=== PATIENT | female | born 1965 | race Caucasian/White ===

== ENCOUNTER 2019-05-28 22:52 | Inpatient (IN) ==
[2019-05-28] MEDS ORDERED: MAXIPIME 2 GM in NS 100 ML IV ONE (23:27)
[2019-05-28] MEDS ORDERED: NS 500 ML IV ONE (23:27)
[2019-05-28] MEDS: NS 1,000 ML IV ONE (23:27)
[2019-05-28] MEDS ORDERED: VANCOMYCIN 1 GM/NS 1 GM/250 ML IVPB IV ONE (23:27)
[2019-05-29 00:07] LABS: INR 1.03; PROTIME 13.6 Seconds (11.0-16.0); PTT 24.7 Seconds (22.3-41.8)
[2019-05-29 00:37] LABS: MAGNESIUM 1.7 mg/dL (1.5-2.7)
[2019-05-29 00:52] LABS: URINE SOURCE CATH
[2019-05-29 01:32] LABS: BILIRUBIN URINE NEGATIVE (NEGATIVE); BLOOD URINE SMALL (NEGATIVE); COLOR YELLOW; GLUCOSE URINE >1000 mg/dL (NEGATIVE); KETONE URINE 10 mg/dL (NEGATIVE); LEUKOCYTES URINE NEGATIVE (NEGATIVE); NITRITE URINE NEGATIVE (NEGATIVE); PROTEIN URINE 300 mg/dL (NEGATIVE); TURBIDITY URINE CLEAR (CLEAR); UROBILINOGEN URINE NORMAL (NORMAL)
[2019-05-29 01:34] LABS: UR EPITHELIAL CELLS <10 /HPF (<10); URINE BACTERIA NEGATIVE /HPF; URINE RBC <10 /HPF (<10); URINE WBC <10 /HPF (<10)
[2019-05-29 01:58] LABS: AGAP 18; ALB/GLOB RATIO 1.1; ALBUMIN 4.4 g/dL (3.5-5.0); ALKALINE PHOSPHATASE 61 U/L (32-104); BUN 24 mg/dL (8-22); CALCIUM 10.6 mg/dL (8.8-10.2); CHLORIDE 94 mmol/L (98-107); COSMO 307; CREATININE 0.8 mg/dL (0.5-0.9); ESTIMATED GFR > 60; GOT 23 U/L (10-30); GPT 28 U/L (10-36); POTASSIUM 4.3 mmol/L (3.5-5.1); SODIUM 141 mmol/L (136-145); TCO2 29 mmol/L (25-35); TOTAL BILIRUBIN 0.29 mg/dL (0.20-1.00); TOTAL PROTEIN 8.3 g/dL (6.3-8.3)
[2019-05-29 02:00] LABS: GLUCOSE 484 mg/dL (70-104)
[2019-05-29] MEDS ORDERED: HUMULIN R IV ONE (02:03)
--- NOTE | 2019-05-29 02:28 | PROVIDER DOCUMENTATION ---
This chart was entered by Angela Werner Scribe, acting as scribe for Sean Basurto MD. HPI-General Adult - General Stated Complaint: fever/cough Time Seen by Provider: 05/28/19 22:56 Source: family, RN/MD Allergies/Adverse Reactions: Patient Allergies Allergy/AdvReac Type Severity Reaction Status Date / Time No Known Allergies Allergy Verified 01/09/14 16:00 Home Medications: Home Medication List Medication Instructions Recorded Confirmed Last Taken Type Triamterene/Hydrochlorothiazid 1 each PO DAILY 07/02/13 01/09/14 01/09/14 08:00 History [Triamterene-Hctz 37.5-25 mg Cp] Fluoxetine [Prozac] 20 mg PO DAILY 01/09/14 01/09/14 01/09/14 08:00 History Levetiracetam [Keppra] 1,000 mg PO DAILY 01/09/14 01/09/14 01/09/14 09:00 History Levetiracetam [Keppra] 1,250 mg PO HS 01/09/14 01/09/14 01/08/14 History Ibuprofen [Motrin] 400 mg PO TID PRN #0 tablet 01/15/14 Unknown Rx - History of Present Illness -Gen Adult Nature of Presenting Problems: pt is a 53 yowf presenting w/family to er w/cc pt arrived via [facility] from [facility] due to fever of 102, high fsbs above 600, htn and cough. pt vomited enroute w/ems. pt has hx of brain cancer, dm and htn. has received radiation recently. pt is nonverbal autistic per rn. no known allergies. pt is obese. Location of Pain/Injury: reports: none Pain Radiation: reports: no radiation Quality of Pain: reports: none Severity: reports: mild Onset/Duration: reports: this afternoon Timing: reports: still present Context/Activities at Onset: reports: none Modifying Factors: improves with: nothing Associated Symptoms: reports: cough, fever/chills, other (high fsbs, htn) Review of Systems - Adult - REVIEW OF SYSTEMS - ADULT Constitutional: reports: see HPI, fever. denies: chills, fatique, night sweats Eyes: reports: no symptoms reported Ears, Nose, Mouth & Throat: reports: no symptoms reported Cardiovascular: reports: see HPI, other (HTN). denies: chest pain, edema, palpitations Respiratory: reports: see HPI, cough. denies: dyspnea on exertion, shortness of breath, wheezing Gastrointestinal: reports: see HPI, vomiting. denies: abdominal pain, diarrhea, nausea Genitourinary: reports: no symptoms reported Musculoskeletal: reports: no symptoms reported Integumentary: reports: no symptoms reported Neurological: reports: no symptoms reported Psychiatric: reports: no symptoms reported Endocrine: reports: see HPI, other (high fsbs). denies: change in skin pigment, excessive sweating, goiter Hematologic/Lymphatic: reports: no symptoms reported Allergic/Immunologic: reports: no symptoms reported All Other Systems: Reviewed and Negative Past History - Adult - PAST MEDICAL HISTORY-ADULT Review of Records: reports: Nursing Assessment Review, Medications Reviewed, Social history reviewed & non-contributory. Major Childhood Illnesses: reports: other (cva) Cardiovascular: reports: HTN Respiratory: reports: denies history Gastrointestinal: reports: denies history Obstetrical/Gynecological: reports: denies history Genitourinary: reports: incontinence Musculoskeletal: reports: other (left knee is weak / has had this for months) Neurological: reports: cancer/tumor, CVA Psychiatric: reports: anxiety, other (nonverbal autistic) Endocrine/Immune: reports: Diabetes Other Conditions: reports: denies history - PRIOR SURGERIES/PROCEDURES Surgical/Procedure History: reports: other (crainiotomy) - IMMUNIZATION STATUS Childhood Immunizations: See Nurse Assessment Flu Vaccine: See Nurse Assessment - FAMILY HISTORY Family History: reviewed, not pertinent - SOCIAL HISTORY Smoking: non-smoker Substance Use: none/never Living Situation: care facility Physical Exam-General - PHYSICAL EXAM-ADULT Initial Vital Signs Reviewed: Yes - CONSTITUTIONAL General Appearance: alert, no apparent distress, obese. negative: anxious, lethargic, combative - EYES Eyes: PERRL/EOMI, pink conjunctivae - HEAD, EARS, NOSE, MOUTH & THROAT HENMT: normocephalic/atraumatic, moist mucous membranes - NECK Neck: non-tender, full range of motion, supple, normal inspection - RESPIRATORY Respiratory: chest non-tender, lungs clear, normal breath sounds, no pleuratic chest pain, no respiratory distress, no accessory muscle use. negative: wheezing, decreased rate, increased rate - CARDIOVASCULAR Cardiovascular: normal peripheral pulses, regular rate, rhythm - GASTROINTESTINAL (ABDOMEN) Abdominal Exam: normal bowel sounds, non tender, soft, no organomegaly, no pulsatile mass. negative: rigid, rebound, tenderness - MUSCULOSKELETAL Back Exam: normal inspection Extremity: normal range of motion, non-tender, normal inspection Peripheral Pulses: radial (R): 2+, radial (L): 2+ - SKIN Integumentary: normal color, normal turgor, warm/dry - NEUROLOGIC Neurologic: other (unable to test due to pt condition) - PSYCHIATRIC Psych/Mental Status: normal mood/affect, normal thought content, normal thought process, oriented x 3, other (pt at baseline) Progress - PLAN OF CARE/RESULTS Progress/Plan/Lab Results: Laboratory Results - last 24 hr 05/28/19 23:11 POC Glucose 460 H Result Diagrams: 05/28/19 23:43 05/28/19 23:43 - EKG 1 Time of EKG reading by physician:: 00:05 EKG Read and Signed by:: Sean Basurto EKG Interpretation (*Must complete 3 of following elements*): Abnormal Rate: 149 Rhythm: ST [place]: left QRS: normal IA Interval: normal ST Wave: non-specific ST changes (nonspecific st abnormality) - CONSULTS/PCP/HOSPITALIST Notification #1 *Consult/PCP/Hospitalist*: Rolando Time Discussed: 02:27 Consult Disposition: Will see in ED, Admit Departure - Departure Date of Disposition Decision: 05/28/19 Time of Disposition Decision: 23:45 DIAGNOSIS: Sepsis Qualifiers: Sepsis type: sepsis due to unspecified organism Severe sepsis acute organ dysfunction type: unspecified Severe sepsis shock status: without septic shock Hyperglycemia due to type 2 diabetes mellitus Qualifiers: Diabetes mellitus snf insulin use: with manager long term care use Qualified Code(s): E11.65 - Type 2 diabetes mellitus with hyperglycemia; Z79.4 - meterman (current) use of insulin Disposition: ADMITTED INPATIENT 09 Certified Medical Emergency: Emergent Condition: Stable Referrals and Follow-Ups: Miko Chery MD [Primary Care Provider] - - Critical Care Note This patient required my direct & personal management of CC.: Yes Total Time (mins): 40 Critical Care Statement: This patient required my direct personal management to treat or rule out processes, the absence of which, could potentiallly result in sudden, clinically significant life or limb threatening deterioration. Attestation - Physician/ SOBEIDA Attestation Patient care was provided by Advanced Practice Provider:: No The physician spent face to face time with patient:: Yes Advanced Practice Provider documentation review:: Supervising physician onsite and consulted in the evaluation and care of this patient. The physician did have a face to face encounter with the patient. Sepsis: Tissue Perfusion Assmt - Physical Exam Assessment Date: 05/29/19 Time Assessment Initialized: 02:10 Vital Signs: Last Vital Signs Temp 101.9 F H 05/28/19 23:15 Pulse 136 H 05/29/19 02:02 Resp 24 05/29/19 02:02 BP 157/104 05/29/19 02:02 Pulse Ox 95 05/29/19 02:02 Height 5 ft 9 in Weight 145.15 kg Lung Sounds:: lungs clear Heart Sounds:: Regular Capillary Refill Time: Less Than 2 Seconds Peripheral Pulse Evaluation:: radial (R): 2+ Skin Exam:: pink - Impression Impression:: Tissue Perfusion Adequate - Plan Plan:: No Change This chart was documented by the indicated scribe, (Angela Werner Scribeyad) and accurately reflects the services I performed and decisions made by me, Sean Basurto MD, as attested by the provider's signature.
[2019-05-29] MEDS ORDERED: TYLENOL PO ONE (02:29)
[2019-05-29] MEDS ORDERED: LANTUS INSULIN SUBQ ONE (02:48)
[2019-05-29 02:51] LABS: UR AMPHETAMINES QUAL NONE DETECTED (NONE DETECT); UR BARBITUATES QUAL NONE DETECTED (NONE DETECT); UR BENZODIAZEPIN QUAL NONE DETECTED (NONE DETECT); UR CANNABINOIDS QUAL NONE DETECTED (NONE DETECT); UR COCAINE QUAL NONE DETECTED (NONE DETECT); UR METHADONE QUAL NONE DETECTED (NONE DETECT); UR OPIATES QUAL NONE DETECTED (NONE DETECT); UR OXYCODONE QUAL NONE DETECTED (NONE DETECT); UR PCP QUAL NONE DETECTED (NONE DETECT)
[2019-05-29 03:02] LABS: BASO# 0.05 X1000 (0.0-0.2); BASO% 0.4 % (0.0-0.8); HEMOGLOBIN 16.3 g/dL (12.0-16.0); IMM GRAN# 0.13 X1000 (0.0-0.04); IMM GRAN% 0.9 % (0.0-0.5); LYMPH# 3.57 X1000 (1.2-3.4); LYMPH% 25.9 % (20.5-51.1); MCH 26.6 PG (27-31); MCHC 30.2 g/dL (33-37); MCV 88.2 FL (81-99); MONO# 1.44 X1000 (0.11-0.59); MONO% 10.4 % (1.7-9.3); MPV 10.4 FL (7.4-10.4); NEUT# 8.62 X1000 (1.4-6.5); NEUT% 62.4 % (42.2-75.2); PLT 647 X1000 (130-400); RBC 6.12 XMIL (4.2-5.4); RDW 15.2 % (11.5-14.5); WBC 13.81 X1000 (4.8-10.8)
[2019-05-29 03:04] LABS: ACETONE SERUM NEGATIVE (NEGATIVE)
[2019-05-29] MEDS: NS 1,000 ML IV ONE (03:08)
[2019-05-29] MEDS ORDERED: ZOFRAN IV PRN (05:40)
[2019-05-29] MEDS ORDERED: VANCOMYCIN IV PER PHARMACY MISC SCH (05:40)
[2019-05-29] MEDS ORDERED: NS 1,000 ML IV SCH (05:40)
[2019-05-29] MEDS ORDERED: TYLENOL PO PRN (05:40)
--- NOTE | 2019-05-29 06:35 | HISTORY AND PHYSICAL ---
REASON FOR ADMISSION: Fever, tachycardia and hyperglycemia. HISTORY: Ms. Caryl Fernandez is a 53-year-old woman with past medical history of prior brain cancer status post resection and radiation, type 2 diabetes, hypertension, and post brain resection seizures. She is currently a resident of a nearby [facility]. Her primary care provider is Dr. Angela Leo's office. She is transferred to a nearby [facility] to our ER with complaints of 3 to 4 day history of chest congestion receiving nebulizer treatments. This has not been getting better, but to compound the matter she had a temperature and fever, heart rate was in the 140s. Her blood pressure was noticeably elevated with elevated blood sugar. The patient was unable to give me any history because she is nonverbal. She will follow certain basic commands, but that is the limit of her communication. Sister at bedside denies any diarrhea or bleeding from any orifice. She said that the only thing that she has noticed is that her sister was having chest congestion without any improvement. REVIEW OF SYSTEMS: Limited due to patient's inability to talk and understand certain questions. ALLERGIES: She has no known allergies. HOME MEDICATIONS: Yet to be reconciled. SOCIAL HISTORY: She does not smoke, drink, or use illicit drugs. Lives in a [facility]. PAST SURGICAL HISTORY: Brain resection for brain cancer. FAMILY HISTORY: Notable for diabetes and brain aneurysms in first-degree relative. LABORATORY: CBC is still pending. BUN is 24, creatinine 0.8, glucose 484, calcium 10.6 and albumin of 4.4. Lactate is 4. PTT is normal. Urinalysis greater than 1000 glucose. Chest film appears to be unremarkable. PHYSICAL EXAMINATION: VITAL SIGNS: Blood pressure 157/104, temperature 102.3, heart rate 136, and respiratory rate is 24. He is 95% on room air. GENERAL: Morbidly obese, middle-aged woman who is in mild distress from a respiratory standpoint lying flat on her back. She is not anxious. Affect was normal. HEENT: Head is normocephalic, atraumatic. Eyes: ISHMAEL. EOMI. She is anicteric, not pale. ENT exam is notable for mild xerostomia, but she has positive pharyngeal crowding i.e. Mallampati stage IV oropharynx. NECK: Short and thick. No JVD visualized. No thyromegaly. LUNGS: We could not examine her back because it was difficult to maneuver her, but heard very few scattered wheezes. Other than that, chest exam was unremarkable. CARDIOVASCULAR: First and 2nd sounds heard. No gallops or rubs. Regular. ABDOMEN: Slightly protuberant and soft with questionable right upper quadrant tenderness. Bowel sounds are normal. No mass or organomegaly. RECTAL: Deferred at this time. EXTREMITIES: The patient has good distal pulses. Volumes regular and symmetrical. No edema, clubbing or cyanosis. NEUROLOGICAL: She has a dense left hemiplegia. SKIN: Intact. No breakdown, lesion, or erythema. PELVIC: Vaginal exam at her sacral area, due to the fact she is morbidly obese, and difficult to maneuver in the stretcher. MUSCULOSKELETAL: Exam is grossly normal. ASSESSMENT: 1. Sepsis, etiology yet to be determined. 2. Uncontrolled type 2 diabetes. 3. Uncontrolled hypertension. 4. Chronic left dense hemiplegia. 5. Seizure disorder. PLAN: We will initiate imaging studies to elucidate etiology of sepsis. CBC still pending, but not necessary for confirmation of infectious process. Flu swabs were ordered to rule out a viral syndrome. We will start patient on Lantus and sliding scale after crystalloid resuscitation. Continue with vancomycin and Maxipime for broad-spectrum coverage pending further workup. Conservative blood pressure control in light of possible [id number] intravascular depletion. cc: Ameya Marshall MD
[2019-05-29] MEDS ORDERED: VANCOMYCIN 1,500 MG in NS 250 ML IV ONE (07:00)
--- NOTE | 2019-05-29 07:13 | Diag Imaging Result Doc PS360 ---
EXAM: CHEST-1 VIEW 05/28/2019 HISTORY: fever TECHNIQUE: AP portable at 0000 on 05/29/2019. COMMENT: The inspiration is suboptimal. There has been no significant change in the appearance of the chest since 01/09/2014. IMPRESSION: Stable chest. Electronically signed by Daniel Horn 05/29/2019 7:11 AM
--- NOTE | 2019-05-29 07:14 | EKG Report ---
Test Performed on : 05/28/2019 11:41:44 PM Test Reason : ED. NO EKG ORDER FOR MUSE Blood Pressure : / mmHG Vent. Rate : 149 BPM Atrial Rate : 149 BPM P-R Int : 122 ms QRS Dur : 074 ms QT Int : 260 ms P-R-T Axes : 038 -64 070 degrees QTc Int : 409 ms Sinus tachycardia. Left axis deviation Nonspecific ST abnormality Abnormal ECG When compared with ECG of 11-JUL-2013 01:04, Vent. rate has increased BY 76 BPM QRS axis shifted left Unconfirmed Result
[2019-05-29] MEDS: LOVENOX SUBQ SCH (08:00)
--- NOTE | 2019-05-29 08:24 | Diag Imaging Result Doc PS360 ---
EXAM: CT THORAX/ABD/PELVIS W/CON INDICATION: sepsis TECHNIQUE: This exam was performed using automated exposure control, adjustment of mA or kV according to patient size, and/or use of iterative reconstruction technique. COMPARISON: None. FINDINGS: CHEST: There is trace dependent atelectasis in the right lower lobe. There is a small calcified granuloma in the left lower lobe. The lungs are grossly clear, otherwise. No airspace consolidations are identified. There is no pleural fluid collection and no pneumothorax. There is no evidence of significant mediastinal or hilar lymphadenopathy. There is no cardiomegaly. ABDOMEN/PELVIS: There is moderate diffuse hepatic steatosis. The gallbladder, spleen, pancreas, adrenal glands, and kidneys are unremarkable. There is a [place] catheter in the urinary bladder and the bladder is nondistended. The reproductive tract is unremarkable as imaged. There are metallic clips at the cecum and no appendix is identified suggesting a likely prior appendectomy. There are only a few sigmoid colonic diverticula and there is no evidence of diverticulitis. No focal bowel wall thickening or bowel obstruction is identified. The remainder of the GI tract is grossly unremarkable. No focal inflammatory changes, free abdominal gas, or free fluid is identified. There is no evidence of acute osseous abnormality. IMPRESSION: 1.Trace dependent atelectasis in the right lower lobe. No evidence of acute chest pathology. 2.Hepatic steatosis and Other incidental/nonacute findings detailed above. No definite acute pathology involving the abdomen or pelvis. Electronically signed by Mikal Werner 05/29/2019 8:22 AM
[2019-05-29] MEDS ORDERED: LANTUS INSULIN SUBQ SCH ×2 (09:00)
[2019-05-29] MEDS: KEPPRA PO SCH (09:01)
[2019-05-29] MEDS: HUMALOG SUBQ SCH ×5 (09:01→23:03)
[2019-05-29] MEDS: MAXIPIME 1 GM in NS 50 ML IV SCH (13:34)
[2019-05-29 15:44] LABS: ALBUMIN 4.4 g/dL (3.5-5.0); CALCIUM 9.2 mg/dL (8.8-10.2); CREATININE 1.2 mg/dL (0.5-0.9); PHOSPHORUS 2.6 mg/dL (2.7-4.5); POTASSIUM 4.2 mmol/L (3.5-5.1)
--- NOTE | 2019-05-29 16:33 | Diag Imaging Result Doc PS360 ---
EXAM: CT MAXILLOFACIAL(SINUS) W/O CO INDICATION: sinusitis TECHNIQUE: COMPARISON: CT head dated 01/09/2014 and MRI brain dated 05/25/2017. No CT sinuses available for comparison. FINDINGS: The right maxillary sinus is congenitally slightly smaller than the left. There is no evidence of mucosal thickening associated with the maxillary sinuses, sphenoid sinuses, ethmoid sinuses, or frontal sinuses. The ostiomeatal units are patent. There is no evidence of significant septal deviation. The mastoid air cells are clear. The visualized bony structures are intact. There are right frontal lobe cortical calcifications corresponding the resection bed of a known mass that is also seen on the prior MRI. IMPRESSION: 1.Congenitally slightly small right maxillary sinus. Unremarkable paranasal sinuses, otherwise. 2.Cortical calcifications in the right frontal lobe corresponding to the resection bed of the known mass seen on previous MRI. Electronically signed by Mikal Werner 05/29/2019 4:30 PM
[2019-05-29 17:23] LABS: BASO# 0.07 X1000 (0.0-0.2); BASO% 0.5 % (0.0-0.8); EOS# 0.06 X1000 (0.0-0.7); EOS% 0.4 % (0.0-10.0); HEMATOCRIT 47.1 % (37.0-47.0); HEMOGLOBIN 14.4 g/dL (12.0-16.0); IMM GRAN# 0.04 X1000 (0.0-0.04); IMM GRAN% 0.3 % (0.0-0.5); LYMPH# 5.53 X1000 (1.2-3.4); LYMPH% 37.3 % (20.5-51.1); MCH 27.4 PG (27-31); MCHC 30.6 g/dL (33-37); MCV 89.5 FL (81-99); MONO# 1.45 X1000 (0.11-0.59); MONO% 9.8 % (1.7-9.3); NEUT# 7.68 X1000 (1.4-6.5); NEUT% 51.7 % (42.2-75.2); PLT 445 X1000 (130-400); RBC 5.26 XMIL (4.2-5.4); WBC 14.83 X1000 (4.8-10.8)
[2019-05-29] MEDS ORDERED: CALMOSEPTINE OINTMENT TOP PRN (20:27)
[2019-05-29] MEDS: LANTUS INSULIN SUBQ SCH (23:03)
[2019-05-30] MEDS: MAXIPIME 1 GM in NS 50 ML IV SCH (01:01)
[2019-05-30] MEDS: NS 1,000 ML IV SCH ×2 (01:06→04:09)
[2019-05-30] MEDS: LOVENOX SUBQ SCH (06:38)
[2019-05-30] MEDS: HUMALOG SUBQ SCH ×7 (06:38→21:29)
[2019-05-30 07:06] LABS: BASO# 0.05 X1000 (0.0-0.2); BASO% 0.4 % (0.0-0.8); EOS# 0.02 X1000 (0.0-0.7); EOS% 0.2 % (0.0-10.0); HEMATOCRIT 43.4 % (37.0-47.0); HEMOGLOBIN 13.2 g/dL (12.0-16.0); IMM GRAN# 0.05 X1000 (0.0-0.04); IMM GRAN% 0.4 % (0.0-0.5); LYMPH# 4.67 X1000 (1.2-3.4); LYMPH% 36.1 % (20.5-51.1); MCH 27.4 PG (27-31); MCHC 30.4 g/dL (33-37); MCV 90.2 FL (81-99); MONO# 0.95 X1000 (0.11-0.59); MONO% 7.3 % (1.7-9.3); MPV 9.9 FL (7.4-10.4); NEUT% 55.6 % (42.2-75.2); PLT 377 X1000 (130-400); RBC 4.81 XMIL (4.2-5.4); RDW 14.7 % (11.5-14.5); WBC 12.94 X1000 (4.8-10.8)
[2019-05-30 07:24] LABS: AGAP 12; BUN 19 mg/dL (8-22); CALCIUM 8.6 mg/dL (8.8-10.2); CHLORIDE 101 mmol/L (98-107); COSMO 292; CREATININE 0.7 mg/dL (0.5-0.9); ESTIMATED GFR > 60; GLUCOSE 292 mg/dL (70-104); MAGNESIUM 1.5 mg/dL (1.5-2.7); POTASSIUM 3.1 mmol/L (3.5-5.1); SODIUM 140 mmol/L (136-145); TCO2 27 mmol/L (25-35)
[2019-05-30 07:27] LABS: C REACTIVE PROT QUANT 1.79 mg/L (0.00-5.00)
[2019-05-30 07:46] LABS: HEMOGLOBIN A1C 9.1 % (4.8-6.0)
[2019-05-30] MEDS: KEPPRA PO SCH (08:59)
[2019-05-30] MEDS: LANTUS INSULIN SUBQ SCH (08:59)
[2019-05-30] MEDS ORDERED: VANCOMYCIN 2,000 MG in NS 500 ML IV SCH (10:00)
[2019-05-30] MEDS ORDERED: MAGNESIUM SULFATE 2 GM/S.W.I. 2 GM/50 ML IVPB IV ONE (10:01)
[2019-05-30] MEDS ORDERED: MAXIPIME 2 GM in NS 50 ML IV SCH ×2 (11:00→15:30)
[2019-05-30] MEDS ORDERED: CUBICIN 600 MG in NS 100 ML IV SCH (13:00)
--- NOTE | 2019-05-30 13:41 | Diag Imaging Result Doc PS360 ---
EXAM: CT ANGIOGRM PULMONARY ARTERIES 05/30/2019 HISTORY: pulmonary embolus TECHNIQUE: This exam was performed using automated exposure control, adjustment of mA or kV according to patient size, and/or use of iterative reconstruction technique. COMMENT: 3-D MIPS were performed. There are some motion artifacts. There are no filling defects in the pulmonary arteries. The thoracic aorta is without evidence of aneurysm or dissection. There is profound hepatic steatosis. There are degenerative disc changes in the thoracic spine. There are no acute bony abnormalities. There are no abnormal fluid collections. There is no evidence of significant adenopathy. IMPRESSION: Hepatic steatosis. No evidence of pulmonary emboli. Electronically signed by Daniel Horn 05/30/2019 1:38 PM
--- NOTE | 2019-05-30 15:54 | INFECTIOUS DISEASE CONSULT REP ---
DATE: 05/30/2019 CONCLUSION: The patient is admitted to the hospital with fever and leukocytosis, the etiology of which I am uncertain. I think the patient may have had a pulmonary embolus in view of the fact that she does have some atelectatic change in her lung and she apparently had chest congestion and fever. The patient has 1 of 2 blood cultures positive for coagulase-negative Staph. I think this is a contaminant and not a pathogen. RECOMMENDATIONS: I agree with putting the patient on cefepime. I have increased the dose to 2 g IV every 12 hours. I am going to discontinue vancomycin because I plan to get on the patient a CT angiogram and since the patient is on vancomycin, I think it would be possible that there could be a renal toxicity if I ordered another CT scan on the patient who is on vancomycin. What I have done is I have stopped vancomycin. I am going to put the patient on daptomycin and then I have ordered for today a CT pulmonary angiogram to look for pulmonary emboli. DISCUSSION: The patient is unable provide a history. According to the information in the computer, the patient was brought to the hospital because she was having chest congestion, fever, tachycardia, and increase in her blood pressure. Also, her blood sugar was elevated. [place] [address], hemoglobin 13.2, and platelet count 377,000. Creatinine is 0.7. GFR is greater than 60. Liver function studies are normal. One out of 2 blood cultures are growing coagulase-negative Staph. I think most likely this is a contaminant. CT scan of the chest, abdomen and pelvis showed a small amount of right lower lobe atelectasis and also the patient had a fatty liver. CT scan of the sinuses showed no sinusitis. PAST MEDICAL HISTORY: Positive for brain cancer which was treated with resection and radiation. The patient also has diabetes, hypertension, and seizure disorder secondary to the patient's brain surgery. The patient lives in a [facility]. PHYSICAL EXAMINATION: Vital Signs: Temperature earlier was 102. It is 99.4 now. Pulse 114 respirations 18, blood pressure is 141/78. The patient weighs 218 pounds. General: This is a somewhat ill-appearing, middle-aged female. She is in no acute distress. Head/eyes/ears/nose/throat: She has no drainage from the nose or ears. Neck: No meningismus. Lungs: Clear to auscultation. Cardiovascular: Regular heart rate. Abdomen: Soft and not tender. Neurologic: The patient is awake. She has a left hemiparalysis. I asked her questions but she answered them by shaking her head yes or no. Integument: No rash and no bedsores. Thank you for the consult. cc: Keegan Chappell MD
[2019-05-30] MEDS ORDERED: MAXIPIME 2 GM in NS 100 ML IV SCH (17:15)
[2019-05-30] MEDS: COLACE PO SCH (21:29)
[2019-05-30] MEDS: LEVEMIR SUBQ SCH (21:30)
--- NOTE | 2019-05-31 03:46 | PROGRESS NOTE ---
DATE: 05/30/2019 SUBJECTIVE: The patient is more interactive and alert today. She did have a temperature of 101.4 degrees last night. OBJECTIVE: Vital Signs: T-max 101.4 degrees, blood pressure 135/79, heart rate 116, respirations 18, O2 saturation 95% on room air. Intake 3.3 L, output 2.5 L. General: This is a chronically ill-appearing, overweight female lying in bed in no acute distress. Heart: S1, S2, normal, tachycardic. Lungs: Clear to auscultation bilaterally. Abdomen: Positive bowel sounds. Soft, nontender, nondistended. Extremities: No edema, no cyanosis. Neurologic: The patient is awake, but nonverbal. LABS: White blood cell count 12, hemoglobin 13, hematocrit 43, platelets 377,000. Sodium 140, potassium 3.1, BUN 19, creatinine 0.7, glucose 292. Magnesium 1.5. Blood cultures: One culture is growing coag-negative staph. Pulmonary arteriogram reveals hepatic steatosis. No evidence of pulmonary emboli. ASSESSMENT AND PLAN: 1. Fever with leukocytosis. No obvious source of infection has been found yet. The patient has one blood culture growing coag-negative staphylococcus; however, the other culture remains negative. The patient remains on broad-spectrum antibiotics. Dr. Chappell is following. 2. Hypokalemia. Will replace the patient's potassium. 3. Seizure disorder. Continue on Keppra. 4. Constipation. We will start the patient on laxative therapy. 5. Morbid obesity. Aware. 6. Uncontrolled diabetes mellitus type 2. The patient has been started on insulin during this hospitalization. We will continue to titrate the dosage for better blood glucose control. 7. Deep vein thrombosis prophylaxis. Continue on Lovenox. 8. We will consult physical therapy. cc: Rosario Brown MD MTDD
[2019-05-31] MEDS ORDERED: MAXIPIME 2 GM/NS 2 GM/100 ML IVPB IV SCH (04:00)
[2019-05-31] MEDS ORDERED: MAXIPIME 2 GM in NS 100 ML IV SCH (05:00)
[2019-05-31] MEDS: LOVENOX SUBQ SCH (06:47)
[2019-05-31] MEDS: HUMALOG SUBQ SCH ×6 (06:47→22:33)
[2019-05-31 06:52] LABS: BASO# 0.03 X1000 (0.0-0.2); BASO% 0.3 % (0.0-0.8); EOS# 0.23 X1000 (0.0-0.7); HEMATOCRIT 42.4 % (37.0-47.0); HEMOGLOBIN 12.8 g/dL (12.0-16.0); IMM GRAN# 0.03 X1000 (0.0-0.04); IMM GRAN% 0.3 % (0.0-0.5); LYMPH# 2.71 X1000 (1.2-3.4); LYMPH% 23.5 % (20.5-51.1); MCH 27.2 PG (27-31); MCHC 30.2 g/dL (33-37); MONO# 0.75 X1000 (0.11-0.59); MONO% 6.5 % (1.7-9.3); MPV 9.8 FL (7.4-10.4); NEUT# 7.79 X1000 (1.4-6.5); NEUT% 67.4 % (42.2-75.2); PLT 264 X1000 (130-400); RBC 4.71 XMIL (4.2-5.4); RDW 14.5 % (11.5-14.5); WBC 11.54 X1000 (4.8-10.8)
[2019-05-31 07:21] LABS: AGAP 12; BUN 20 mg/dL (8-22); CALCIUM 8.7 mg/dL (8.8-10.2); CHLORIDE 105 mmol/L (98-107); COSMO 292; CREATININE 0.7 mg/dL (0.5-0.9); ESTIMATED GFR > 60; GLUCOSE 143 mg/dL (70-104); POTASSIUM 3.3 mmol/L (3.5-5.1); SODIUM 144 mmol/L (136-145); TCO2 27 mmol/L (25-35)
[2019-05-31] MEDS ORDERED: KLOR-CON PO ONE (07:34)
[2019-05-31] MEDS: KEPPRA PO SCH (09:31)
[2019-05-31] MEDS: COLACE PO SCH ×2 (09:31→22:34)
[2019-05-31] MEDS: MIRALAX PO SCH (09:32)
[2019-05-31] MEDS: LEVEMIR SUBQ SCH ×2 (09:32→22:32)
[2019-05-31] MEDS ORDERED: LASIX IV ONE (14:31)
[2019-05-31] MEDS ORDERED: VANCOMYCIN IV PER PHARMACY MISC SCH (15:15)
[2019-05-31] MEDS: MAXIPIME 2 GM/NS 2 GM/100 ML IVPB IV SCH (16:20)
[2019-05-31] MEDS ORDERED: ALBUMIN 25% IV ONE (16:52)
[2019-05-31] MEDS ORDERED: VANCOMYCIN 2.5 GM in NS 500 ML IV ONE (17:00)
--- NOTE | 2019-05-31 21:36 | INFECTIOUS DISEASE PROGRESS NO ---
DATE: 05/31/2019 PRESENT ILLNESS: The patient was admitted to the hospital with fever and leukocytosis, the etiology of which is uncertain. She appears, however, to be getting better. MEDICATIONS: The patient initially was on cefepime and vancomycin. I stopped the vancomycin because I ordered a pulmonary angiogram and I did not want to see the combination of vancomycin and IV contrast to cause renal failure, but now the pulmonary angiogram is over with, so I am going to discontinue the daptomycin that I started yesterday and restart the vancomycin. The patient already is on cefepime. It will be day 1 for both of the antibiotics, namely cefepime and vancomycin. PHYSICAL EXAMINATION: Vital Signs: Temperature is 98.9 degrees, pulse 89, respirations 18, blood pressure 112/78. General: This is an ill-appearing, middle-aged female. She is in no acute distress. She is alert. She did track with her eyes. She did shake her head in response to a question I asked her. Head, eyes, ears, nose, throat: No drainage noted from the nose or ears. I did not see any white patches in her mouth. Neck: No pain with movement of it. Lungs: Clear to auscultation. Cardiovascular: Heart rate is regular. Abdomen: Soft and nontender. Neurologic: The patient is awake. She has a left hemiparalysis. As mentioned above, she did answer questions by shaking her head yes or no. Integument: No rash noted. LAB AND X-RAY: Pulmonary angiogram showed no evidence of pulmonary embolus. CBC shows the white count is coming down. Today, it was 11,540. Hemoglobin 12.8 and platelet count 264,000. Creatinine is 0.7. GFR is greater than 60. Swab for influenza was negative. One of 2 blood cultures is growing coagulase-negative staph which I think is a contaminant. ASSESSMENT AND PLAN: Patient's fever and her leukocytosis are improving. She has been afebrile today and the white blood cell count is coming down, so my plan is to continue the cefepime, and as mentioned above, I have substituted vancomycin for daptomycin. As I said above also, I am not exactly sure what caused her fever and leukocytosis. I think the positive blood culture is more likely a contaminant than a pathogen. COMORBIDITIES: The patient had brain cancer which was treated with resection and radiation. She also is a diabetic, and she has a seizure disorder secondary to the brain surgery. cc: Keegan Chappell MD
--- NOTE | 2019-05-31 22:46 | PROGRESS NOTE ---
DATE: 05/31/2019 SUBJECTIVE: The patient is resting comfortably in bed. No acute events noted overnight. OBJECTIVE: Vital Signs: Temperature 98.4 degrees, blood pressure 110/70, heart rate 113, respirations 20, O2 saturation is 97% on room air. Intake 2.5 L, output 850. General: This is a morbidly obese female, sitting up in bed, grinding her teeth. Heart: S1, S2 normal. Regular rate and rhythm. Lungs: Equal air entry bilaterally. No wheezing. No rales. No rhonchi. Abdomen: Positive bowel sounds. Soft, obese, nontender. Extremities: Edema 3+ bilaterally. Neurologic: The patient is nonverbal. LABORATORY DATA: White blood cell count 11, hemoglobin 12, hematocrit 42, platelets 264,000. Sodium 144, potassium 3.3, chloride 105, BUN 20, creatinine 0.7, glucose 143, magnesium 1.9. ASSESSMENT AND PLAN: 1. Fever with leukocytosis. The patient is afebrile at this time. Blood cultures likely indicate that the patient that it is a contaminant. The patient appears to be improving with broad-spectrum antibiotics. Dr. Chappell is following. 2. Peripheral edema. We will give the patient a dose of Lasix today and albumin. 3. Seizure disorder. Continue on Keppra. 4. Constipation. Improved. Continue with laxative therapy. 5. Morbid obesity. Aware. 6. Uncontrolled diabetes mellitus type 2. Improved. Continue with long-acting insulin. 7. Deep vein thrombosis prophylaxis. Continue on Lovenox. 8. Physical Therapy has been consulted. cc: Rosario Brown MD
[2019-06-01] MEDS: MAXIPIME 2 GM/NS 2 GM/100 ML IVPB IV SCH ×2 (06:36→17:41)
[2019-06-01] MEDS: LOVENOX SUBQ SCH (06:37)
[2019-06-01] MEDS: HUMALOG SUBQ SCH ×8 (06:41→22:06)
[2019-06-01 08:01] LABS: BASO# 0.04 X1000 (0.0-0.2); BASO% 0.5 % (0.0-0.8); EOS# 0.23 X1000 (0.0-0.7); EOS% 2.7 % (0.0-10.0); IMM GRAN# 0.02 X1000 (0.0-0.04); IMM GRAN% 0.2 % (0.0-0.5); LYMPH# 2.35 X1000 (1.2-3.4); LYMPH% 27.3 % (20.5-51.1); MCHC 30.8 g/dL (33-37); MCV 91.1 FL (81-99); MPV 10.4 FL (7.4-10.4); NEUT# 5.36 X1000 (1.4-6.5); NEUT% 62.3 % (42.2-75.2); PLT 231 X1000 (130-400); RBC 4.28 XMIL (4.2-5.4); RDW 14.9 % (11.5-14.5)
[2019-06-01 08:23] LABS: AGAP 16; BUN 17 mg/dL (8-22); CALCIUM 9.1 mg/dL (8.8-10.2); CHLORIDE 105 mmol/L (98-107); COSMO 290; CREATININE 0.5 mg/dL (0.5-0.9); ESTIMATED GFR > 60; GLUCOSE 67 mg/dL (70-104); POTASSIUM 3.7 mmol/L (3.5-5.1); SODIUM 146 mmol/L (136-145); TCO2 25 mmol/L (25-35)
[2019-06-01] MEDS: COLACE PO SCH ×2 (08:45→22:03)
[2019-06-01] MEDS: MIRALAX PO SCH (08:45)
[2019-06-01] MEDS: LEVEMIR SUBQ SCH ×2 (08:45→22:03)
[2019-06-01] MEDS: KEPPRA PO SCH (08:45)
[2019-06-01 10:03] LABS: MAGNESIUM 1.7 mg/dL (1.5-2.7); PHOSPHORUS 2.9 mg/dL (2.7-4.5)
[2019-06-01] MEDS ORDERED: ALBUMIN 25% IV ONE (10:35)
[2019-06-01] MEDS ORDERED: LASIX IV ONE (10:35)
[2019-06-01] MEDS: VANCOMYCIN 2 GM in NS 500 ML IV SCH (12:03)
[2019-06-01] MEDS ORDERED: INSULIN PEN NEEDLES ONE (15:29)
[2019-06-02] MEDS: VANCOMYCIN 2 GM in NS 500 ML IV SCH ×2 (04:52→22:36)
[2019-06-02] MEDS: LOVENOX SUBQ SCH (05:19)
[2019-06-02] MEDS: HUMALOG SUBQ SCH ×7 (06:41→21:22)
--- NOTE | 2019-06-02 07:26 | INFECTIOUS DISEASE PROGRESS NO ---
DATE: 06/01/2019 PRESENT ILLNESS: The patient was admitted to the hospital with fever and leukocytosis, both of which she is getting over. The cause of the fever and leukocytosis is unknown to me at this time. MEDICATIONS: The patient is on the combination of cefepime and vancomycin. PHYSICAL EXAMINATION: Vital Signs: Temperature is 98.6 degrees, pulse 93, respirations 18, blood pressure is 127/77. General: This is an ill-appearing middle-aged female. She is in no acute distress. She is alert. Head/eyes/ears/nose/throat: She does talk. She tracks with her eyes. She does not have any drainage in her ears or nose. She did follow some requests to move her extremities. Neck: She does not does not seem to have any pain when she moves her neck. Lungs: Clear to auscultation. Cardiovascular: Heart rate is regular. Abdomen: Soft and nontender. Neurologic: The patient has a left hemiparalysis. She does track with her eyes. She did move her right arm. LAB AND X-RAY: There is no new x-ray. CBC shows a white count of 8600, hemoglobin 12, platelet count 231,000. Creatinine is 0.5. GFR is greater than 60. ASSESSMENT AND PLAN: The patient has fever and leukocytosis, which are resolving. I discussed with Dr. Brown. We are going to keep the patient over the weekend, and Tuesday I am going to repeat her complete blood count, basic metabolic panel and portable chest x-ray. If they look good, then Dr. Brown and I think we can let the patient go home on no antibiotics. COMORBIDITIES: The patient had brain cancer and she was treated with surgical resection and radiation therapy. She is a diabetic. She has a seizure disorder. cc: Keegan Chappell MD
--- NOTE | 2019-06-02 07:27 | PROGRESS NOTE ---
DATE: 06/01/2019 SUBJECTIVE: The patient is sitting up in bed. She is nonverbal. OBJECTIVE: Vitals: T-max 100 degrees, blood pressure 114/41, heart rate 100, respirations 16, O2 saturation 99% on 2 L nasal cannula. Intake 1.4 L. Output 1.8 L. General: This is a morbidly obese female sitting up in a bed in no acute distress. Heart: S1, S2 normal. Tachycardic. Lungs: Clear to auscultation bilaterally. Abdomen: Positive bowel sounds. Soft, nontender, nondistended. Extremities: 3+ edema in the legs. Neurologic: The patient is awake but nonverbal. LABS: White blood cell count 8.6, hemoglobin 12, hematocrit 39, platelets 231,000. Sodium 146, potassium 3.7, chloride 105, CO2 25, BUN 17, creatinine 0.5. Magnesium 1.7. ASSESSMENT AND PLAN: 1. Fever with leukocytosis. The patient appears to be improving. Her white count is normal now, and so far the cultures show coagulase-negative staphylococcus, which may be a contaminant. We will repeat the blood cultures. Continue with broad-spectrum antibiotics as directed by Dr. Chappell. 2. Peripheral edema. We will continue with diuretic therapy. 3. Seizure disorder. Continue on Keppra. 4. Morbid obesity. Aware. 5. Constipation. Continue with laxative therapy. 6. Uncontrolled diabetes mellitus type 2. Continue with long-acting insulin. 7. Deep vein thrombosis prophylaxis. Continue on Lovenox. 8. Continue with physical therapy. 9. Disposition. The patient will likely be ready for discharge toward the early part of this coming week. cc: Rosario Brown MD
[2019-06-02 07:34] LABS: BASO# 0.03 X1000 (0.0-0.2); BASO% 0.3 % (0.0-0.8); EOS# 0.44 X1000 (0.0-0.7); EOS% 4.1 % (0.0-10.0); HEMATOCRIT 36.5 % (37.0-47.0); IMM GRAN# 0.03 X1000 (0.0-0.04); IMM GRAN% 0.3 % (0.0-0.5); LYMPH# 2.58 X1000 (1.2-3.4); MCH 27.2 PG (27-31); MCHC 30.1 g/dL (33-37); MCV 90.1 FL (81-99); MONO# 0.66 X1000 (0.11-0.59); MONO% 6.1 % (1.7-9.3); MPV 9.9 FL (7.4-10.4); NEUT# 7.03 X1000 (1.4-6.5); NEUT% 65.2 % (42.2-75.2); PLT 270 X1000 (130-400); RBC 4.05 XMIL (4.2-5.4); WBC 10.77 X1000 (4.8-10.8)
[2019-06-02 08:07] LABS: AGAP 15; BUN 13 mg/dL (8-22); CHLORIDE 102 mmol/L (98-107); COSMO 290; CREATININE 0.5 mg/dL (0.5-0.9); ESTIMATED GFR > 60; GLUCOSE 128 mg/dL (70-104); POTASSIUM 3.3 mmol/L (3.5-5.1); SODIUM 145 mmol/L (136-145); TCO2 28 mmol/L (25-35)
[2019-06-02] MEDS ORDERED: LASIX IV ONE (08:33)
[2019-06-02] MEDS ORDERED: KLOR-CON PO ONE (08:33)
[2019-06-02] MEDS ORDERED: MAGNESIUM SULFATE 2 GM/S.W.I. 2 GM/50 ML IVPB IV ONE (08:34)
[2019-06-02] MEDS: MIRALAX PO SCH (10:09)
[2019-06-02] MEDS: KEPPRA PO SCH (10:10)
[2019-06-02] MEDS: LEVEMIR SUBQ SCH ×2 (10:10→21:15)
[2019-06-02] MEDS: COLACE PO SCH ×2 (10:10→21:22)
[2019-06-02] MEDS: MAXIPIME 2 GM/NS 2 GM/100 ML IVPB IV SCH ×2 (10:11→21:14)
--- NOTE | 2019-06-03 03:13 | PROGRESS NOTE ---
DATE: 06/02/2019 SUBJECTIVE: The patient is resting comfortably. No acute events noted overnight. OBJECTIVE: Vital Signs: Temperature 99 degrees, blood pressure 135/96, heart rate 93, respirations 18, O2 saturation 100% on room air. General: This is a morbidly obese female sitting in bed, in no acute distress. Heart: S1, S2 normal. Tachycardic. Lungs: Equal air entry bilaterally. Abdomen: Positive bowel sounds. Soft, nontender, nondistended. Extremities: 1+ edema in the legs. Neurologic: The patient is nonverbal. LABS: White blood cell count 10, hemoglobin 11, hematocrit 36, platelets 270,000. Sodium 145, potassium 3.3, chloride 102 CO2 of 28, BUN 13, creatinine 0.5. Glucose 128. ASSESSMENT AND PLAN: 1. Fever with leukocytosis. Resolved. The patient remains on antibiotic therapy. We will continue to monitor closely. Dr. Chappell is following. 2. Peripheral edema. Improved. The patient is on diuretic therapy. 3. Uncontrolled diabetes mellitus type 2. Continue with long-acting insulin. 4. Seizure disorder. Continue on Keppra. 5. Morbid obesity. Aware. 6. History of brain cancer status post resection and radiation. Aware. 7. Deep vein thrombosis prophylaxis. Continue on Lovenox. 8. Disposition. The patient will likely be discharged to the alf on Tuesday. cc: Rosario Brown MD
[2019-06-03] MEDS: LOVENOX SUBQ SCH (06:18)
[2019-06-03] MEDS: HUMALOG SUBQ SCH ×7 (06:36→21:21)
[2019-06-03] MEDS ORDERED: INSULIN PEN NEEDLES ONE (07:28)
[2019-06-03] MEDS: MAXIPIME 2 GM/NS 2 GM/100 ML IVPB IV SCH ×2 (07:58→20:25)
[2019-06-03] MEDS: MIRALAX PO SCH (07:59)
[2019-06-03] MEDS: COLACE PO SCH ×2 (07:59→20:25)
[2019-06-03] MEDS: KEPPRA PO SCH (07:59)
[2019-06-03] MEDS: LEVEMIR SUBQ SCH ×2 (08:00→21:23)
[2019-06-03 08:03] LABS: BASO# 0.03 X1000 (0.0-0.2); BASO% 0.3 % (0.0-0.8); EOS# 0.59 X1000 (0.0-0.7); EOS% 5.3 % (0.0-10.0); HEMATOCRIT 38.6 % (37.0-47.0); HEMOGLOBIN 11.4 g/dL (12.0-16.0); IMM GRAN# 0.04 X1000 (0.0-0.04); IMM GRAN% 0.4 % (0.0-0.5); LYMPH# 2.31 X1000 (1.2-3.4); LYMPH% 20.9 % (20.5-51.1); MCH 27.1 PG (27-31); MCHC 29.5 g/dL (33-37); MCV 91.9 FL (81-99); MONO# 0.69 X1000 (0.11-0.59); MONO% 6.3 % (1.7-9.3); MPV 10.5 FL (7.4-10.4); NEUT# 7.38 X1000 (1.4-6.5); NEUT% 66.8 % (42.2-75.2); PLT 326 X1000 (130-400); RDW 15.4 % (11.5-14.5); WBC 11.04 X1000 (4.8-10.8)
[2019-06-03 08:40] LABS: AGAP 12; BUN 14 mg/dL (8-22); CALCIUM 9.4 mg/dL (8.8-10.2); CHLORIDE 103 mmol/L (98-107); COSMO 290; CREATININE 0.5 mg/dL (0.5-0.9); ESTIMATED GFR > 60; GLUCOSE 143 mg/dL (70-104); POTASSIUM 3.9 mmol/L (3.5-5.1); SODIUM 144 mmol/L (136-145); TCO2 29 mmol/L (25-35)
--- NOTE | 2019-06-04 04:47 | PROGRESS NOTE ---
DATE: 06/03/2019 SUBJECTIVE: The patient is resting comfortably. No acute events noted overnight. OBJECTIVE: Vital Signs: Temperature 98.4 degrees, blood pressure 120/80, heart rate 83, respirations 16, O2 saturations 100% on 2 L nasal cannula. Intake 1.5 L, output 2.7 L. General: This is an elderly female lying in bed in no acute distress. Heart: S1, S2 normal. Regular rate and rhythm. Lungs: Coarse breath sounds. Abdomen: Positive bowel sounds. Soft, nontender, nondistended. Extremities: 2+ edema in the lower extremities. Neurologic: The patient is nonverbal but is able to move all 4 extremities. LABORATORY: White blood cell count 11, hemoglobin 11, hematocrit 38, and platelets 326,000. Sodium 144, potassium 3.9, chloride 103, CO2 29, BUN 14, creatinine 0.5 glucose 143, and magnesium 2. ASSESSMENT AND PLAN: 1. Fever with leukocytosis. Resolved. The patient is currently on vancomycin. So far, the repeat blood cultures remain negative. 2. Insulin-dependent diabetes mellitus. Continue on Levemir and sliding scale insulin. 3. Morbid obesity. Aware. 4. History of brain cancer status post resection and radiation. Aware. 5. Seizure disorder. Continue on Keppra. 6. Morbid obesity. Aware. 7. Deep vein thrombosis prophylaxis. Continue on Lovenox. 8. Hypertension. Continue on the current antihypertensive regimen. cc: Rosario Brown MD [facility]
[2019-06-04] MEDS: LOVENOX SUBQ SCH (05:21)
[2019-06-04] MEDS ORDERED: VANCOMYCIN 1,800 MG in NS 250 ML IV SCH (06:00)
[2019-06-04] MEDS: HUMALOG SUBQ SCH ×4 (06:42→12:23)
--- NOTE | 2019-06-04 07:29 | Diag Imaging Result Doc PS360 ---
EXAM: CHEST-1 VIEW INDICATION: pneumonia TECHNIQUE: One view COMPARISON: 05/29/2019 FINDINGS: There is stable elevation of the right hemidiaphragm. The lungs are grossly clear. There is no discrete pleural fluid collection or pneumothorax. The cardiomediastinal silhouette and central vasculature are grossly unremarkable. IMPRESSION: No evidence of acute pathology by plain radiograph. Electronically signed by Mikal Werner 06/04/2019 7:27 AM
[2019-06-04 07:37] LABS: BASO# 0.03 X1000 (0.0-0.2); BASO% 0.3 % (0.0-0.8); EOS# 0.49 X1000 (0.0-0.7); HEMATOCRIT 38.8 % (37.0-47.0); HEMOGLOBIN 11.5 g/dL (12.0-16.0); IMM GRAN# 0.03 X1000 (0.0-0.04); IMM GRAN% 0.3 % (0.0-0.5); LYMPH# 2.47 X1000 (1.2-3.4); LYMPH% 25.4 % (20.5-51.1); MCH 27.3 PG (27-31); MCHC 29.6 g/dL (33-37); MCV 92.2 FL (81-99); MONO# 0.65 X1000 (0.11-0.59); MONO% 6.7 % (1.7-9.3); MPV 10.2 FL (7.4-10.4); NEUT# 6.06 X1000 (1.4-6.5); NEUT% 62.3 % (42.2-75.2); PLT 392 X1000 (130-400); RBC 4.21 XMIL (4.2-5.4); RDW 15.7 % (11.5-14.5); WBC 9.73 X1000 (4.8-10.8)
[2019-06-04 07:41] LABS: AGAP 14; BUN 14 mg/dL (8-22); CALCIUM 9.4 mg/dL (8.8-10.2); CHLORIDE 102 mmol/L (98-107); COSMO 288; CREATININE 0.5 mg/dL (0.5-0.9); ESTIMATED GFR > 60; GLUCOSE 205 mg/dL (70-104); POTASSIUM 3.7 mmol/L (3.5-5.1); SODIUM 141 mmol/L (136-145); TCO2 25 mmol/L (25-35)
[2019-06-04] MEDS: MIRALAX PO SCH (09:50)
[2019-06-04] MEDS: MAXIPIME 2 GM/NS 2 GM/100 ML IVPB IV SCH (09:50)
[2019-06-04] MEDS: COLACE PO SCH (09:51)
[2019-06-04] MEDS: KEPPRA PO SCH (09:51)
[2019-06-04] MEDS: LEVEMIR SUBQ SCH (09:51)
--- NOTE | 2019-06-04 11:26 | DISCHARGE SUMMARY ---
ADMISSION DATE: 05/29/2019 DISCHARGE DATE: 06/04/2019 FINAL DISCHARGE DIAGNOSES: 1. Fever with leukocytosis. 2. Insulin-dependent diabetes mellitus. 3. Morbid obesity. 4. History of brain cancer status post resection and radiation. 5. Seizure disorder. 6. Morbid obesity. 7. Hypertension. 8. Chronic constipation. CONSULTATIONS: Infectious Disease consultation with Dr. Chappell. HOSPITAL COURSE: Ms. Fernandez is a 53-year-old female with a history of brain cancer status post chemotherapy and radiation, who was brought to the ER with a high fever and leukocytosis. In the ER, a chest x-ray was done that was noted to be unremarkable. Also, a urinalysis was performed that was noted to be negative. The patient was admitted to the Hospitalist Service. Blood cultures were obtained and broad-spectrum antibiotics were initiated. Infectious Disease was consulted for further recommendations since no obvious source of infection was apparent. The 1st set of blood cultures grew out coag-negative staph in 1 bottle, which was thought to be a contaminant. During the course of the hospitalization, the patient was treated with cefepime and vancomycin, which the patient responded to. The leukocytosis resolved and the patient no longer had any fevers. Ultimately, a source of the patient's infection was not found. The repeat blood cultures remain negative at the time of this dictation. The chest x-ray on the day of discharge revealed no acute pathology. The patient was noted to have high blood sugars, so insulin therapy was initiated during this hospitalization. At this time, the patient is medically stable for discharge to the senior living. On the day of discharge, the patient was noted to have a white blood cell count of 9.7, hemoglobin of 11, hematocrit of 38, and a platelet count of 392. The patient was noted to also have a potassium of 3.7 with a BUN of 14 and a creatinine of 0.5. DISCHARGE MEDICATIONS: 1. Levemir 45 units subcutaneous twice a day. 2. MiraLAX 17 g oral daily. 3. Tylenol 650 mg oral every 6 hours p.r.n. 4. Colace 100 mg oral twice a day. 5. Keppra 1000 mg oral daily. 6. Aspirin 81 mg oral daily. 7. Depakote 4 capsules oral daily. 8. Fenofibrate 145 mg oral daily. 9. Lactulose 15 mL oral twice a day. 10. Singulair 40 mg oral daily. 11. Multivitamin 1 tab oral daily. 12. Metformin ER 500 mg oral twice a day. 13. Cymbalta 20 mg oral at bedtime. 14. Singer 10/325 one tab oral every 6 hours p.r.n. for pain. 15. Ipratropium/albuterol inhaled every 6 hours p.r.n. for shortness of breath. DISCHARGE DIET: 1800 ADA diet. ACTIVITY: As tolerated. FOLLOWUP INSTRUCTIONS: The patient will need to follow up with her primary care physician in 1 week. cc: Rosario Brown MD
[2019-06-04 13:16] VITALS: BP 110/87
== END 2019-06-04 14:07 | DRG 815 ==
LOC: SUPCPDRO → ED 22:52 → SUATTDRO 05-29 04:16 → 4N 05-29 04:16
PROVIDERS: ATTEND Internal Medicine